=== PATIENT | female | born 1945 | race Caucasian/White ===

== ENCOUNTER 2024-11-29 02:29 | Emergency (ER) | payer MEDICARE ==
[2024-11-29] VITALS (15 sets, daily range): BP systolic 171–209; BP diastolic 86–102
[~2024-11-29] VITALS: Ht 160 cm; Wt 62.6 kg
[~2024-11-29 02:29] MED LIST: BENADRYL 25MG C25 MG PO; CARVEDILOL6.25 MG PO; CENTRUM ADULTS1 TAB PO; GLUCOSAMI11 PO; HYDRALAZINE HYD25 MG PO; LISINOPRIL40 MG PO; NAPROXEN500 MG PO; PROTONIX40 M2 PO; TIZANIDINE2 MG PO; TRAMADOL HCL50 MG PO; VITAMIN C500 M6 PO
[2024-11-29] MEDS ORDERED: FUROSEMIDE 40 MG/4 ML SDV IV ONE (02:45)
[2024-11-29 03:12] LABS: EOS% 0.1 % (0-8); IMMATURE GRANULOCYTES 0.3 % (0.0-5.0); LYMPH% 4.1 % (15-41); MEAN CELL VOLUME 89.7 fL CALC (80.0-100.0); MEAN CORPUSCULAR HGB 30.4 pG CALC (26.0-32.0); MEAN CORPUSCULAR HGB CONC 33.9 g/dL CAL (32.0-36.0); MONO% 3.2 % (2-13); NEUT# 18.1 thou/uL (2.00-7.15); NEUT% 92.3 % (42-76); RED BLOOD COUNT 2.14 mill/uL (4.20-5.60); RED CELL DISTRI WIDTH 16.5 % (11.5-15.5)
[2024-11-29 03:38] LABS: D-DIMER 2.13 mg/L (0.19-0.60)
[2024-11-29 03:39] LABS: ALBUMIN 3.2 g/dL (3.2-5.0); ALKALINE PHOSPHATASE 49 u/l (38-126); BILIRUBIN, TOTAL 0.5 mg/dL (0.02-1.3); CHLORIDE 108 mmol/l (95-108); SGOT/AST 36 u/l (9-36); SODIUM 137 mmol/l (137-146)
[2024-11-29] MEDS ORDERED: MORPHINE SULFATE 4 MG/ML VIAL IV ONE (03:40)
[2024-11-29] MEDS ORDERED: hydrALAZINE HCL 20 MG/ML VIAL(1 ML) IV ONE (03:40)
[2024-11-29] MEDS ORDERED: NITROGLYCERIN 2% OINT UD 1 GM/PAK TD ONE (03:40)
[2024-11-29] MEDS ORDERED: CARVEDILOL25 MG PO (03:40)
[2024-11-29 03:43] LABS: HEMATOCRIT 19.2 % (37.0-47.0); HEMOGLOBIN 6.5 g/dl (12.0-16.0)
[2024-11-29 03:52] LABS: ANION GAP 16 (6-22 (CALC)); BUN/CREATININE RATIO 21 (12-20 (CALC)); CARBON DIOXIDE 18 mmol/l (22-30); CREATININE 4.6 mg/dL (0.5-1.0); ESTIMATED GFR 9 ML/MIN (>=90 (CALC)); POTASSIUM 5.2 mmol/l (3.5-5.1)
[2024-11-29 03:54] LABS: BUN 96 mg/dL (8-23)
[2024-11-29] MEDS ORDERED: LORTAB 5/3255 MG PO (03:57)
[2024-11-29] MEDS ORDERED: PROCARDIA XL30 MG PO (03:57)
[2024-11-29] MEDS ORDERED: SODIUM BICARBI650 MG PO (03:58)
[2024-11-29] MEDS ORDERED: TERAZOSIN1 MG PO (03:59)
[2024-11-29] MEDS ORDERED: PROMETHAZINE HCL 25 MG/ML AMP IV ONE (04:40)
[2024-11-29] MEDS ORDERED: LABETALOL HCL 20 MG/ 4 ML CARTRG IV ONE (04:40)
[2024-11-29] MEDS ORDERED: Levofloxacin 750 mg Premix 150 ML IV ONE (04:40)
[2024-11-29] MEDS ORDERED: SODIUM CHLORIDE 0.9% 500 ML IV SCH (04:40)
[2024-11-29] MEDS ORDERED: SODIUM CHLORIDE 0.9% 1,000 ML IV ONE (04:45)
== END 2024-11-29 06:22 ==
LOC: ED 02:29
PROVIDERS: Family Medicine
PROC: 30233N1 Transfusion of Nonautologous Red Blood Cells into Peripheral Vein, Percutaneous Approach (ICD-10-PCS; principal; 2024-11-29)
DX: M31.7 Microscopic polyangiitis (principal); I12.0 Hypertensive chronic kidney disease with stage 5 chronic kidney disease or end stage renal disease; N18.6 End stage renal disease; J81.1 Chronic pulmonary edema; R79.89 Other specified abnormal findings of blood chemistry; D64.9 Anemia, unspecified; Z20.822 Contact with and (suspected) exposure to COVID-19
CPT/HCPCS: J0360; J1100; J1940; J2550; P9016